=== PATIENT | female | born 1980 ===

== ENCOUNTER 2020-05-22 07:47 | Inpatient (IN) | payer OTHER ==
[~2020-05-22] VITALS: Ht 162.6 cm; Wt 78.0 kg
[~2020-05-22 07:47] MED LIST: PRENATAL CAPLE1 EACH PO
[2020-05-22] MEDS ORDERED: PEPCID20 MG PO (09:21)
[2020-05-24] MEDS ORDERED: NAPR500T14 PO (08:53)
== END 2020-05-24 11:03 | disposition home or self-care (01) | DRG 807 ==
LOC: OB/GYN 07:47 → LDR 07:47 → OB/GYN 16:01 → LDR 18:09 → OB/GYN 18:46
PROVIDERS: ADMIT Obstetrics & Gynecology; ATTEND Obstetrics & Gynecology
PROC: 10E0XZZ Delivery of Products of Conception, External Approach (ICD-10-PCS; principal; 2020-05-22)
PROC: 10907ZC Drainage of Amniotic Fluid, Therapeutic from Products of Conception, Via Natural or Artificial Opening (ICD-10-PCS; 2020-05-22)
PROC: 3E033VJ Introduction of Other Hormone into Peripheral Vein, Percutaneous Approach (ICD-10-PCS; 2020-05-22)
PROC: 4A1HXFZ Monitoring of Products of Conception, Cardiac Rhythm, External Approach (ICD-10-PCS; 2020-05-22)
DX: O70.0 First degree perineal laceration during delivery (principal); Z37.0 Single live birth; Z3A.39 39 weeks gestation of pregnancy; Z20.822 Contact with and (suspected) exposure to COVID-19